=== PATIENT | female | born 2000 | race Caucasian/White ===

== ENCOUNTER 2023-07-25 10:03 | Inpatient (IN) | payer BC ==
[2023-07-24 12:41] LABS: Platelet Count 390 10x3/uL (150-450)
[2023-07-24 13:19] LABS: HBsAg Index 0.21 S/CO (0-0.99); Hep B Surf Ag Non-Reactive S/CO (NonReactive)
[2023-07-24 13:20] LABS: Syphilis Antibody Nonreactive (Nonreactive); Syphilis Antibody Index 0.12 S/CO (<1.00 Non-Reactive)
[2023-07-25] MEDS ORDERED: Lactated Ringer's 1,000 ML IV SCH (11:10)
[2023-07-25] MEDS ORDERED: Oxytocin 30 units/NS 500 ML 500 ML IV SCH ×2 (11:10→16:44)
[2023-07-25] MEDS ORDERED: Bicitra 30 ML UDCUP PO PRN (11:10)
[2023-07-25] MEDS ORDERED: hydrALAZINE 20 MG/ML VIAL SLOW IVP PRN ×2 (11:10→16:44)
[2023-07-25] MEDS ORDERED: Promethazine HCl 25 MG/ML VIAL IM PRN ×2 (11:10→12:49)
[2023-07-25] MEDS ORDERED: Ondansetron PF 4 MG/2 ML Vial IVP PRN ×3 (11:10→16:44)
[2023-07-25] MEDS ORDERED: Famotidine/PF 20 mg/2ml Vial SLOW IVP PRN (11:10)
[2023-07-25] MEDS ORDERED: CEFAZOLIN 2 GM in Sodium Chloride 0.9% 100 ML IVPB SCH (11:10)
[2023-07-25 12:08] LABS: Hematocrit 25.9 % (34.9-44.5); Mean Corpuscular HGB CONC 30.9 g/dL (32.0-36.0); Mean Corpuscular Hemoglobin 21.3 pg (27.0-33.0); Mean Corpuscular Volume 68.9 fl (81.6-98.3); Mean Platelet Volume 9.5 fl (7.4-10.4); Platelet Count 335 10x3/uL (150-450); RBC Distribution Width 16.7 % (11.5-14.5); Red Blood Cell (RBC) Count 3.76 10x6/uL (3.90-5.03); White Blood Cell (WBC) Count 8.6 10x3/uL (3.5-10.5)
[2023-07-25] MEDS ORDERED: Naloxone HCl 0.4 mg/ml Vial IV PRN (12:49)
[2023-07-25] MEDS ORDERED: Naloxone HCl 0.4 mg/ml Vial IVP PRN (12:49)
[2023-07-25] MEDS ORDERED: Meperidine HCl/PF 25 MG (1 mL) VIAL SLOW IVP PRN (12:49)
[2023-07-25] MEDS ORDERED: fentaNYL 50 mcg/mL 1 mL Vial SLOW IVP PRN (12:49)
[2023-07-25] MEDS ORDERED: Ketorolac Tromethamine 30 MG (1 mL) VIAL IVP SCH (13:00)
[2023-07-25] MEDS ORDERED: Communication Order-Pharmacy FS SCH (13:00)
[2023-07-25 16:20] VITALS: BMI 39.6
[2023-07-25] MEDS ORDERED: diphenhydrAMINE 25 MG CAP PO PRN (16:44)
[2023-07-25] MEDS ORDERED: Bisacodyl 10 MG SUPP PR PRN (16:44)
[2023-07-25] MEDS ORDERED: Lanolin Ointment 7 GM TUBE TOP PRN (16:44)
[2023-07-25] MEDS: Ondansetron PF 4 MG/2 ML Vial ONE ×2 (18:30→18:34)
[2023-07-25] MEDS: Famotidine/PF 20 mg/2ml Vial ONE (18:30)
[2023-07-25] MEDS: PHENYLEPHRINE-NS 100 MCG/ML 10 ML SYRINGE ONE (18:31)
[2023-07-25] MEDS: Phenylephrine 40 MG/NS 250 ML 250 ML ONE (18:31)
[2023-07-25] MEDS: CEFAZOLIN 2 GM VIAL ONE (18:31)
[2023-07-25] MEDS: ePHEDrine Sulfate 50 MG/10 ML VIAL ONE (18:31)
[2023-07-25] MEDS: Oxytocin 10 UNITS/ML VIAL ONE (18:31)
[2023-07-25] MEDS: Hepatitis B Vaccine 10 MCG/0.5 ML SYR ONE (18:32)
[2023-07-25] MEDS: Erythromycin Base 0.5% Oint 1 GM TUBE ONE (18:32)
[2023-07-25] MEDS: Dexmedetomidine 200 MCG/2 ML VIAL ONE (18:33)
[2023-07-25] MEDS: Phytonadione Neonatal 1 MG/0.5 ML AMP ONE (18:33)
[2023-07-25] MEDS: Bupivacaine 0.25% HCL 30 ML VIAL ONE (18:33)
[2023-07-25] MEDS: Morphine PF 10 MG/10 ML VIAL ONE (18:33)
[2023-07-25] MEDS: Bupivacaine PF 0.5% 30 ML VIAL ONE (18:33)
[2023-07-25] MEDS: Naloxone HCl 0.4 mg/ml Vial IVP PRN (18:43)
[2023-07-25] MEDS: Moisturizing Cream (Eucerin) 113 GM JAR TOP PRN (18:44)
[2023-07-25] MEDS: diphenhydrAMINE 50 MG/ML VIAL IVP PRN (20:01)
[2023-07-25] MEDS: Ondansetron PF 4 MG/2 ML Vial IVP PRN (23:32)
[2023-07-26 02:58] LABS: Hematocrit 24.7 % (34.9-44.5); Hemoglobin 7.6 g/dL (12.0-15.5); Mean Corpuscular HGB CONC 30.8 g/dL (32.0-36.0); Mean Corpuscular Hemoglobin 21.5 pg (27.0-33.0); Mean Corpuscular Volume 69.8 fl (81.6-98.3); Mean Platelet Volume 9.5 fl (7.4-10.4); Platelet Count 302 10x3/uL (150-450); Red Blood Cell (RBC) Count 3.54 10x6/uL (3.90-5.03); White Blood Cell (WBC) Count 9.7 10x3/uL (3.5-10.5)
[2023-07-26] MEDS: Ketorolac Tromethamine 30 MG (1 mL) VIAL IVP PRN (05:24)
[2023-07-26] MEDS: Prenatal Vitamin 1 TAB PO SCH (08:19)
[2023-07-26] MEDS: Boostrix 0.5 ML (Tdap) VIAL (>/=7 yrs of age) IM ONE (08:19)
[2023-07-26] MEDS ORDERED: Iron Sucrose Complex 200 MG in Sodium Chloride 0.9% 100 ML IVPB SCH (08:30)
[2023-07-26] MEDS: Sodium Ferric Gluconate 250 MG in Sodium Chloride 0.9% 250 ML 250 ML IVPB SCH (11:07)
[2023-07-26] MEDS: Ibuprofen 800 MG TAB PO SCH (13:19)
[2023-07-26] MEDS: HYDROcodone/Acetaminophen 5/325 mg Tablet PO PRN (13:20)
[2023-07-27] MEDS: HYDROcodone/Acetaminophen 5/325 mg Tablet PO PRN (06:02)
[2023-07-27 06:06] VITALS: TEMP 97.8
[2023-07-27 07:43] VITALS: BP 107/63
== END 2023-07-27 15:00 | disposition home or self-care (01) | DRG 785 ==
LOC: CSHLD 10:03 → CSHPP 17:00
PROVIDERS: ADMIT Obstetrics & Gynecology; ATTEND Obstetrics & Gynecology
PROC: 10D00Z1 Extraction of Products of Conception, Low, Open Approach (ICD-10-PCS; principal; 2023-07-25)
PROC: 0UT70ZZ Resection of Bilateral Fallopian Tubes, Open Approach (ICD-10-PCS; 2023-07-25)
DX: O34.211 Maternal care for low transverse scar from previous cesarean delivery (principal); O48.0 Post-term pregnancy; O99.02 Anemia complicating childbirth; O32.1XX0 Maternal care for breech presentation, not applicable or unspecified; Z3A.40 40 weeks gestation of pregnancy; Z37.0 Single live birth
CPT/HCPCS: 36415; 51702; 85014; 85018; 85027; 85049; 86780; 86850; 86870; 86900; 86901; 86922; 87340; 88302; J0665; J1200; J1885; J2274; J2310; J2405; J2590; J2916; J7050; S0028